=== PATIENT | male | born 1990 | race Caucasian/White ===

== ENCOUNTER 2018-10-22 20:17 | Emergency (ER) | payer OTHER, SELFPAY ==
[2018-10-22] MEDS ORDERED: Cephalexin 500 MG CAP ONE (21:10)
[2018-10-22] MEDS ORDERED: Lidocaine 1% 20 ML MDV ONE (21:10)
[2018-10-22] MEDS ORDERED: Acetaminophen 325 MG TAB ONE (21:58)
[2018-10-22] MEDS ORDERED: Ibuprofen 800 MG TAB ONE (21:58)
[2018-10-22] MEDS ORDERED: HYDROcodone/Acetaminophen 10/325 mg Tablet ONE (21:58)
[2018-10-22] MEDS ORDERED: Bacitracin Zinc 1 Packet ONE (22:14)
== END 2018-10-22 22:22 | disposition home or self-care (01) ==
LOC: MADERS 20:17
DX: L02.612 Cutaneous abscess of left foot (principal); L03.032 Cellulitis of left toe
CPT/HCPCS: 10060; J2001

== ENCOUNTER 2023-10-18 16:21 | Emergency (ER) | payer BC, SELFPAY ==
[2023-10-18] MEDS ORDERED: predniSONE 20 MG TAB ONE (17:29)
== END 2023-10-18 17:45 | disposition home or self-care (01) ==
LOC: MADERS 16:21
DX: M94.0 Chondrocostal junction syndrome [Tietze] (principal)
CPT/HCPCS: 71045; 93005; J7512